=== PATIENT | female | born 1935 | race Caucasian/White ===

== ENCOUNTER → 2016-09-27 | Outpatient (CLI) | payer MEDICARE ==
[~2016-09-27] MED LIST: ACETAMINOPHEN PO; ALEVE PO; ASPIRIN81 M1 PO; AVALIDE 150/12.1 TAB PO; AVAPRO150 MG PO; CALCIUM 500 +1 EAC2 PO; HYDROCODON-ACE1 EAC7 PO; LORTAB 7.5-5001 TAB PO; PHENERGAN25 MG PO; POTASSIUM GLUCO99 MG PO; VITAL-D RX TABL1 TAB PO
--- NOTE | ~2016-09-27 | BD1 ---
[facility] A Service of [facility] & [facility] RADIOLOGY TEXT RESULTS PATIENT: KRISTIE SILVESTRE LOCATION: [facility] : 37 UNIT #: [id number] AGE: [address]: Amish Welch MD SEX: F ORDER DR: [id number] [place] [id number] O MR#: [id number] Acc #: [id number] NAME: KRISTIE SILVESTRE : 1935 SEX: F STUDY DATE/TIME: 09/27/2016 9:09 UNIT: SRAD ROOM: STUDY DESCRIPTION: Dexa Bone Dens 1+ Site Attending Physician: Amish Welch M.D. Referring Physician: Amish Welch M.D. Ordering Physician: Amish Welch M.D. Primary Care Physician: Amish Welch M.D. MEDICAL IMAGING REPORT This report is preliminary unless electronic signature is present. EXAM DXA scan 09/27/2016 HISTORY Status post menopause with no hormone replacement therapy. Osteopenia. Hypertension with blood pressure medication for over 10 years. Fracture of leg in last 10 years. FINDINGS Bone mineral density in the lumbar spine from L1-L4 was 1.251 g/cm2 which is 0.6 standard deviations above the mean when compared to the young adult reference population which is within the range of normal. This is 1.8 standard deviations above the mean when compared to the age-matched population. Bone mineral density in the right femoral neck was 0.738 g/cm2 which is 2.2 standard deviations below the mean when compared to the young adult reference population which is characteristic of osteopenia. This is 0.4 standard deviations below the mean when compared to the age-matched population. Bone mineral density in the distal left forearm radius was 0.402 g/cm2 which is 1.5 standard deviations below the mean when compared to the young adult reference population which is characteristic of osteopenia. This is 1.3 standard deviations above the mean when compared to the age-matched population. IMPRESSION Bone mineral density in the lumbar spine within the range of normal and within the right hip and left forearm characteristic of osteopenia. Dictated by... Marcus Mix M.D. [facility] A Service of [facility] & [facility] RADIOLOGY TEXT RESULTS PATIENT: KRISTIE SILVESTRE LOCATION: [facility] : 37 UNIT #: [id number] AGE: [address]: Amish Welch MD SEX: F ORDER DR: THIS IS AN ELECTRONICALLY VERIFIED REPORT Marcus Mix M.D. at 09/27/2016 5:04 PM LB/javon TD: 09/27/2016 11:20 JOB #: [id number] MEDICAL IMAGING REPORT Page 1 of 1
== END | disposition home or self-care (01) ==
LOC: SRAD 08:50
DX: Z13.820 Encounter for screening for osteoporosis (principal); Z78.0 Asymptomatic menopausal state
CPT/HCPCS: 77080